=== PATIENT | female | born 1970 | race Caucasian/White ===

== ENCOUNTER 2020-11-18 09:48 | Day surgery (SDC) | payer SELFPAY ==
[2020-11-13 13:10] LABS: APPEARANCE,URINE CLEAR; BILIRUBIN,URINE NEGATIVE (NEGATIVE); COLOR,URINE YELLOW; GLUCOSE, URINE NEGATIVE (NEGATIVE); KETONES,URINE NEGATIVE (NEGATIVE); LEUKOCYTE ESTERASE,URINE NEGATIVE (NEGATIVE); NITRITE,URINE NEGATIVE (NEGATIVE); PROTEIN,URINE NEGATIVE (NEGATIVE); URINE SPECIFIC GRAVITY 1.017
[2020-11-13 13:10] LABS: HEMATOCRIT 34.2 % (36.0-47.0); HEMOGLOBIN 12.1 g/dL (12.0-15.5); MEAN CORPUSCULAR HEMOGLOBIN 30.6 pg (27.0-33.4); MEAN CORPUSCULAR HGB CONC 35.5 g/dL (32.0-36.0); MEAN CORPUSCULAR VOLUME 86 fl (80-97); PLATELET COUNT 314 10^3/uL (150-450); RED BLOOD COUNT 3.97 10^6/uL (3.72-5.28); RED CELL DISTRIBUTION WIDTH 13.1 % (11.5-14.0); WHITE BLOOD COUNT 4.5 10^3/uL (4.0-10.5)
[2020-11-13 13:33] LABS: ALBUMIN 4.1 g/dL (3.5-5.0); ALKALINE PHOSPHATASE 44 U/L (38-126); ANION GAP 8 (5-19); ASPARTATE AMINO TRANSFERASE 30 U/L (14-36); BILIRUBIN,DIRECT 0.2 mg/dL (0.0-0.4); BILIRUBIN,TOTAL 1.6 mg/dL (0.2-1.3); BLOOD UREA NITROGEN 8 mg/dL (7-20); CALCIUM 9.1 mg/dL (8.4-10.2); CARBON DIOXIDE 26 mmol/L (22-30); CHLORIDE 108 mmol/L (98-107); GLUCOSE 75 mg/dL (75-110); POTASSIUM 4.3 mmol/L (3.6-5.0); TOTAL PROTEIN 6.9 g/dL (6.3-8.2)
[~2020-11-18 09:48] MED LIST: CEFAZOLIN 1 GM/D5W RTU 1 GM/50 ML RTUPB IV ONE; CEFAZOLIN 1 GM/D5W RTU 1 GM/50 ML RTUPB IV PRN; LACTATED RINGERS 1000 ML IV PRN
[2020-11-18] MEDS ORDERED: MIDAZOLAM 2 MG/2 ML INJ ONE (11:41)
[2020-11-18] MEDS ORDERED: FENTANYL CITRATE INJ/PF 100 MCG/2 ML AMPUL ONE (11:41)
[2020-11-18] MEDS ORDERED: KETOROLAC TROMETHAMINE 60 MG/2 ML SDV ONE (11:41)
[2020-11-18] MEDS ORDERED: PROPOFOL INJ 200 MG/20 ML VIAL IV ONE (11:42)
[2020-11-18] MEDS ORDERED: MEPERIDINE HCL/PF INJ 25 MG/1 ML DISP.SYRIN IV PRN (12:29)
[2020-11-18] MEDS ORDERED: DIPHENHYDRAMINE HCL 50 MG/ML VIAL IV PRN (12:29)
[2020-11-18] MEDS ORDERED: FENTANYL CITRATE INJ/PF 100 MCG/2 ML AMPUL IV PRN ×3 (12:29)
[2020-11-18] MEDS ORDERED: PROMETHAZINE HCL INJ 25 MG/1 ML VIAL IV PRN ×3 (12:29→13:25)
[2020-11-18] MEDS ORDERED: OXYCODONE-ACETAMINOPHEN 5-325 MG TABLET PO PRN ×3 (12:29→13:21)
[2020-11-18] MEDS ORDERED: MORPHINE SULFATE 10 MG/ML INJ IV PRN (12:29)
[2020-11-18] MEDS ORDERED: ONDANSETRON HCL INJ/PF 4 MG/2 ML SDV IV PRN (12:29)
--- NOTE | 2020-11-18 13:02 | Operative Report ---
Operative Report DATE OF SURGERY: 11/18/20 PREOPERATIVE DIAGNOSIS: Post menopausal bleeding POSTOPERATIVE DIAGNOSIS: Post menopausal bleeding OPERATION: D&C SURGEON: HANSEL RHOADES ANESTHESIA: GA TISSUE REMOVED OR ALTERED: Endometrium COMPLICATIONS: None ESTIMATED BLOOD LOSS: 20 cc INTRAOPERATIVE FINDINGS: Post menopausal bleeding PROCEDURE: Patient was brought into the OR and placed on the table in supine position. Patient was then inducted under general anesthesia. He was repositioned into a dorsolithotomy position. A timeout was called. Procedure was discussed. Bladder was drained of 30 cc of clear yellow urine. Pelvic under anesthesia was done a weighted vaginal speculum was inserted into the vagina. Cervix was grasped on its anterior lip with a single-tooth tenaculum. Uterus was sounded to 8 cm. No endometrial cavity was curetted with a medium size sharp curette. This terminated the procedure and the tenaculum was removed. The vaginal speculum was removed. And a sponge forceps the remaining blood and tissue was removed from the vagina. Anesthesia was discontinued then. Was placed back in the supine position. Patient was then transferred to recovery room in satisfactory condition. Estimated blood loss was [address] Hansel Rhoades on 11/18/2020. Thank you
[2020-11-18 17:43] VITALS: BP 120/76
== END 2020-11-18 14:50 | disposition home or self-care (01) ==
LOC: OROUT 09:48
PROVIDERS: ATTEND Obstetrics & Gynecology
DX: N95.0 Postmenopausal bleeding (principal); N93.8 Other specified abnormal uterine and vaginal bleeding; N85.8 Other specified noninflammatory disorders of uterus; Z79.899 Other long term (current) drug therapy; Z98.51 Tubal ligation status; Z01.812 Encounter for preprocedural laboratory examination; Z20.822 Contact with and (suspected) exposure to COVID-19
CPT/HCPCS: 36415; 85027; 87635; 81025; 80053; 81001; 88305 ×2; 58120; J2250; J0690; J3010; J2704; C9803; 940; J1885